=== PATIENT | female | born 1940 | race Caucasian/White ===

== ENCOUNTER 2022-09-06 16:04 | Emergency (ER) | payer MEDICARE ==
[~2022-09-06] VITALS: Ht 165.1 cm; Wt 64.4 kg
== END 2022-09-06 20:04 | disposition home or self-care (01) ==
LOC: ER 17:06
DX: R10.84 Generalized abdominal pain (principal); K59.00 Constipation, unspecified; E78.5 Hyperlipidemia, unspecified; E03.9 Hypothyroidism, unspecified; K21.9 Gastro-esophageal reflux disease without esophagitis
CPT/HCPCS: 74019; 99283